=== PATIENT | female | born 1970 ===

== ENCOUNTER 2018-02-14 15:45 | Emergency (ER) | payer OTHER ==
[~2018-02-14] VITALS: Ht 157.5 cm; Wt 60.3 kg
[2018-02-14] MEDS ORDERED: SKELAXIN800 MG PO (20:19)
[2018-02-14] MEDS ORDERED: ORPHENADRINE C100 MG PO (20:19)
[2018-02-14] MEDS ORDERED: KETO10TA2 PO (20:19)
== END 2018-02-14 20:28 | disposition home or self-care (01) ==
LOC: ER 15:45
DX: S40.011A Contusion of right shoulder, initial encounter (principal); S30.0XXA Contusion of lower back and pelvis, initial encounter; W10.8XXA Fall (on) (from) other stairs and steps, initial encounter; Y93.01 Activity, walking, marching and hiking; Y92.098 Other place in other non-institutional residence as the place of occurrence of the external cause; Y99.8 Other external cause status

== ENCOUNTER 2021-05-23 11:54 | Emergency (ER) | payer OTHER ==
[~2021-05-23] VITALS: Ht 157.5 cm; Wt 59.4 kg
[~2021-05-23 11:54] MED LIST: KETO10TA2 PO; ORPHENADRINE C100 MG PO; SKELAXIN800 MG PO
[2021-05-23] MEDS ORDERED: KETO10TA2 PO (16:12)
[2021-05-23] MEDS ORDERED: ORPHENADRINE C100 MG PO (16:12)
== END 2021-05-23 16:26 ==
LOC: ER 11:54
DX: S13.8XXA Sprain of joints and ligaments of other parts of neck, initial encounter (principal); S09.8XXA Other specified injuries of head, initial encounter; W18.39XA Other fall on same level, initial encounter; Y93.01 Activity, walking, marching and hiking; Y92.018 Other place in single-family (private) house as the place of occurrence of the external cause; Y99.8 Other external cause status